=== PATIENT | female | born 1960 | race Two or more races ===

== ENCOUNTER 2024-03-13 09:37 | Emergency (ER) | payer OTHER ==
[~2024-03-13] VITALS: Ht 170.2 cm; Wt 79.5 kg
[2024-03-13 10:02] VITALS: BP 110/62; PULSE 65; RESP 16; O2SAT 96
== END 2024-03-13 10:00 | disposition left against medical advice (07) ==
LOC: ER 09:37
DX: R22.43 Localized swelling, mass and lump, lower limb, bilateral (principal); Z53.21 Procedure and treatment not carried out due to patient leaving prior to being seen by health care provider